=== PATIENT | female | born 1935 | race Caucasian/White ===

== ENCOUNTER 2016-07-12 10:23 | Outpatient (CLI) | payer MEDICARE, OTHER ==
[2015-01-18 11:53] VITALS: BP 136/73
== END 2016-07-12 10:24 ==
LOC: POD 10:23
PROVIDERS: ATTEND Podiatrist Public Medicine
DX: B35.1 Tinea unguium (principal); L84 Corns and callosities; L60.0 Ingrowing nail; M79.674 Pain in right toe(s); M79.675 Pain in left toe(s)
CPT/HCPCS: 11721; G0463

== ENCOUNTER 2016-11-15 09:27 | Outpatient (CLI) | payer MEDICARE, OTHER ==
[2015-01-18 11:53] VITALS: BP 136/73
== END 2016-11-15 09:30 ==
LOC: POD 09:27
PROVIDERS: ATTEND Podiatrist Public Medicine
DX: B35.1 Tinea unguium (principal); L60.0 Ingrowing nail; M20.41 Other hammer toe(s) (acquired), right foot; M20.42 Other hammer toe(s) (acquired), left foot; M79.675 Pain in left toe(s); M79.674 Pain in right toe(s); L84 Corns and callosities
CPT/HCPCS: 11721; G0463

== ENCOUNTER 2016-12-27 09:10 | Outpatient (CLI) | payer MEDICARE, OTHER ==
[2015-01-18 11:53] VITALS: BP 136/73
--- NOTE | 2016-12-27 15:40 | Diagnostic Imaging Report ---
BETTY PEREIRA [facility] [id number] [facility] [address] [id number] Report Submission Date: Dec 27, 2016 9:43:40 AM CDT Patient Study Name: JOHN BOUDREAUX Date: Dec 27, 2016 9:16:46 AM CDT Modality Type: CR Gender: F Description: UPPER EXTREMITY : 31 Institution: [facility] Physician: BETTY PEREIRA Right 5th finger -three views CLINICAL HISTORY: Nodule in the right 5th digit with intermittent pain. FINDINGS: Examination right 5th finger in palmar, lateral and oblique views fails to demonstrate evidence of fracture, dislocation or other bone or joint pathology. There is no opaque foreign body in the soft tissues. IMPRESSION: Negative study. Electronically signed on Dec 27, 2016 9:43:40 AM CDT by: Nabor ERIC
== END 2016-12-27 09:11 ==
LOC: RAD 09:10
PROVIDERS: ATTEND Family Medicine
DX: R22.31 Localized swelling, mass and lump, right upper limb (principal)
CPT/HCPCS: 73140

== ENCOUNTER 2017-02-14 09:15 | Outpatient (CLI) | payer MEDICARE, OTHER ==
[2015-01-18 11:53] VITALS: BP 136/73
== END 2017-02-14 09:16 ==
LOC: POD 09:15
PROVIDERS: ATTEND Podiatrist Public Medicine
DX: B35.1 Tinea unguium (principal); L60.0 Ingrowing nail; L84 Corns and callosities; M20.42 Other hammer toe(s) (acquired), left foot; M20.41 Other hammer toe(s) (acquired), right foot; M79.674 Pain in right toe(s); M79.675 Pain in left toe(s)
CPT/HCPCS: 11721; G0463

== ENCOUNTER 2017-05-01 10:08 | Outpatient (CLI) | payer MEDICARE, OTHER ==
[2015-01-18 11:53] VITALS: BP 136/73
[2017-05-01 10:44] LABS: BASOPHILS % 0.8 (0.0-1.5); EOSINOPHILS % 3.3 % (0.0-6.8); MEAN CORPUSCULAR HEMOGLOBIN 33.5 pg (28.0-34.0); MEAN CORPUSCULAR VOLUME 99.9 fl (80.0-100.0); MONOCYTES % 6.2 % (0.0-11.0); NEUTROPHILS # 2.3 # k/uL (1.4-7.7)
[2017-05-01 10:50] LABS: eGFR (African) > 60; eGFR (Non-African) > 60
== END 2017-05-01 12:58 ==
LOC: LAB 10:08
PROVIDERS: ATTEND Dermatology
DX: L29.9 Pruritus, unspecified (principal)
CPT/HCPCS: 36415; 80053; 84439; 84443; 85025

== ENCOUNTER 2017-05-16 09:43 | Outpatient (CLI) | payer MEDICARE, OTHER ==
[2015-01-18 11:53] VITALS: BP 136/73
== END 2017-05-16 10:00 ==
LOC: POD 09:43
PROVIDERS: ATTEND Podiatrist Public Medicine
DX: B35.1 Tinea unguium (principal); L84 Corns and callosities; L60.0 Ingrowing nail; M79.674 Pain in right toe(s); M79.675 Pain in left toe(s); M20.41 Other hammer toe(s) (acquired), right foot; M20.42 Other hammer toe(s) (acquired), left foot
CPT/HCPCS: 11721; G0463

== ENCOUNTER 2017-08-15 09:24 | Outpatient (CLI) | payer MEDICARE, OTHER ==
[2015-01-18 11:53] VITALS: BP 136/73
== END 2017-08-15 09:25 ==
LOC: POD 09:24
PROVIDERS: ATTEND Podiatrist Public Medicine
DX: B35.1 Tinea unguium (principal); L84 Corns and callosities; L60.0 Ingrowing nail; M79.674 Pain in right toe(s); M79.675 Pain in left toe(s); M20.41 Other hammer toe(s) (acquired), right foot; M20.42 Other hammer toe(s) (acquired), left foot
CPT/HCPCS: 11721; G0463

== ENCOUNTER 2017-11-28 10:02 | Outpatient (CLI) | payer MEDICARE, OTHER ==
[2015-01-18 11:53] VITALS: BP 136/73
== END 2017-11-28 10:03 ==
LOC: POD 10:02
PROVIDERS: ATTEND Podiatrist Public Medicine
DX: B35.1 Tinea unguium (principal); L84 Corns and callosities; L60.0 Ingrowing nail; M79.674 Pain in right toe(s); M79.675 Pain in left toe(s); M20.41 Other hammer toe(s) (acquired), right foot; M20.42 Other hammer toe(s) (acquired), left foot
CPT/HCPCS: 11721; G0463